=== PATIENT | male | born 1985 | race African-American/Black ===

== ENCOUNTER 2022-07-27 15:58 | Emergency (ER) | payer OTHER ==
[2022-07-27] MEDS ORDERED: Acetaminophen/HYDROcodone 325-5 MG Tab PO ONE (16:32)
[2022-07-27] MEDS ORDERED: Diazepam 5 MG Tab PO ONE (16:32)
== END 2022-07-27 17:01 | disposition home or self-care (01) ==
LOC: MW.ED 15:58
DX: S39.012A Strain of muscle, fascia and tendon of lower back, initial encounter (principal); F17.210 Nicotine dependence, cigarettes, uncomplicated; V89.2XXA Person injured in unspecified motor-vehicle accident, traffic, initial encounter; Y92.410 Unspecified street and highway as the place of occurrence of the external cause
CPT/HCPCS: 99283; A9270